=== PATIENT | female | born 1995 | race Caucasian/White ===

== ENCOUNTER → 2016-10-27 | Emergency (ER) | payer BC ==
[~2016-10-27] VITALS: Ht 152.4 cm; Wt 66.0 kg
[~2016-10-27] MED LIST: BAC30OI TOP; BACTDS PO; CEPH-443 PO
[2016-10-27 19:38] VITALS: Ht 152.4 cm; Wt 66.0 kg
--- NOTE | 2016-10-28 04:21 | ERD ---
DATE OF SERVICE: HISTORY OF PRESENT ILLNESS: The patient is a 21-year-old female complaining of an abscess to her co ccyx. The patient states it has been there for the last 4 days, popped yesterday. It has been drai shabbir pus. She has not used any medication on the site. She has never had this before. He has had no fevers, no abdominal pain, no changes in bowel movements, and no pain with bowel movements. PAST MEDICAL HISTORY: Denies medical problems. ALLERGIES: DENIES ALLERGIES TO MEDICATIONS. SURGICAL HISTORY: Denies. SOCIAL HISTORY: Denies. REVIEW OF SYSTEMS: A 12-point review of systems was done. Refer to HPI for positives. All other s ystems negative. PHYSICAL EXAMINATION VITAL SIGNS: Temperature is 98.7, pulse 95, blood pressure 117/56, respiratory rate 18, O2 saturati on 100% on room air. Pain intensity 8/10. GENERAL: The patient is well-appearing, well-nourished, no acute distress. HEART: Regular rate and rhythm. No murmurs, clicks, rubs, or gallops. No S3 or S4. CHEST: Clear to auscultation bilaterally. There are no rales, wheezes, or rhonchi. ABDOMEN: Soft, nontender and nondistended. Good bowel sounds. No rebound or guarding. No gross p eritonitis. No gross organomegaly or masses. No Erickson sign or McBurney point tenderness. SKIN: There is an erythematous site noted to the pilonidal region. There is no purulent discharge, no active bleeding, no fluctuance. There is an open site. There is no erythema noted around the r ectum with no purulence extracted from the anus. DIAGNOSIS: Abscess. MEDICAL DECISION MAKING: There is no fluctuance on exam. The patient does have induration. I feel the patient's purulence is extracted. I do not feel there was indication for further I and D; lizzeth carpenter, I recommend the patient to use warm compresses at home and to return in 2 days for recheck, as I and D may be indicated at this time. I did not feel that the purulence would be extracted from in fection at this time. The patient will be discharged with antibiotics. The patient is up to date o n tetanus. DISCHARGE: The patient is discharged stable. The patient is told to use warm compresses twice saeed y and clean site with soap and water. The patient is told to take Bactrim and Keflex for antibiotic s. The patient was told if symptoms progress or worsen to return to the ER. All other questions an swered at time of discharge. Discharge summary given at the time of departure. The patient underst ood and complied with plan. Dictated By: RIVER KEN/LESTER Conf#: [id number] DID#: [id number]
== END | disposition home or self-care (01) ==
LOC: FTE 18:48
DX: L05.01 Pilonidal cyst with abscess (principal)
CPT/HCPCS: 99284